=== PATIENT | male | born 2000 | race Two or more races ===

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

== ENCOUNTER 2019-01-18 12:39 | Emergency (ER) | payer BC ==
[2019-01-18] MEDS ORDERED: PREDNISONE 20 MG TABLET PO ONE (12:57)
[2019-01-18] MEDS ORDERED: IPRATROPIUM/ALBUTEROL 0.5-2.5 MG/3 ML AMPUL NEB ONE (12:57)
--- NOTE | 2019-01-18 12:59 | ER Document Report ---
ED Medical Screen (RME) - General Chief Complaint: Breathing Difficulty Stated Complaint: TROUBLE BREATHING/WHEEZING Time Seen by Provider: 01/18/19 12:55 Primary Care Provider: SHANAE PEARSNO MD [Primary Care Provider] - Follow up as needed Information source: Patient Notes: Patient presents with chest pain shortness of breath and wheezing that started yesterday. Patient reports productive green sputum. Patient denies any fever. Patient does have a history of asthma and is out of his medications. I have greeted and performed a rapid initial assessment of this patient. A comprehensive ED assessment and evaluation of the patient, analysis of test results and completion of the medical decision making process will be conducted by additional ED providers. TRAVEL OUTSIDE OF THE [place] IN LAST 30 DAYS: No - Related Data Allergies/Adverse Reactions: No Known Allergies Allergy (Verified 01/18/19 12:56) Past Medical History Pulmonary Medical History: Reports: Hx Asthma Renal/ Medical History: Denies: Hx Peritoneal Dialysis Psychiatric Medical History: Reports: Hx Attention Deficit Hyperactivity Disorder - Immunizations Immunizations up to date: Yes Physical Exam - Vital signs Vitals: Temp Pulse Resp BP Pulse Ox 98.5 F 102 H 26 H 140/57 H 95 01/18/19 12:53 01/18/19 12:53 01/18/19 12:53 01/18/19 12:53 01/18/19 12:53 - Respiratory Respiratory status: Tachypnea Chest status: Pain with cough Breath sounds: Productive cough, Wheezing Course - Vital Signs Vital signs: Temp Pulse Resp BP Pulse Ox 98.5 F 102 H 26 H 140/57 H 95 01/18/19 12:53 01/18/19 12:53 01/18/19 12:53 01/18/19 12:53 01/18/19 12:53 Doctor's Discharge - Discharge Referrals: SHANAE PEARSON MD [Primary Care Provider] - Follow up as needed
[2019-01-18] MEDS: ALBUTEROL SULFATE 0.083% NEB 2.5 MG/3 ML AMPUL NEB SCH ×2 (13:08→13:10)
--- NOTE | 2019-01-18 13:29 | ER Document Report ---
HPI - HPI Time Seen by Provider: 01/18/19 12:55 Pain Level: 1 Notes: Patient is a 18-year-old male with a history of asthma who presents complaining of having asthma exacerbation over the past 3 days. Patient states it started out as a dry cough. Patient states that he cannot afford an inhaler so he has not been using one. He is able to eat and drink without difficulty. He is urinating normally and having normal bowel movements. Denies drug allergies. Patient states that he has had flareups like this in the past. He is not been intubated or admitted for the asthma before. He does note some soreness/tightness primarily with cough. Denies any headache, fever, neck pain, URI, sore throat, chest pain, palpitations, syncope, abdominal pain, nausea/vomiting/diarrhea, urinary retention, dysuria, hematuria, or rash. - ROS Systems Reviewed and Negative: Yes All other systems reviewed and negative - REPRODUCTIVE Reproductive: DENIES: : Past Medical History - General Information source: Patient - Social History Smoking Status: Former Smoker Chew tobacco use (# tins/day): Yes Frequency of alcohol use: None Drug Abuse: None Family History: Reviewed & Not Pertinent Patient has suicidal ideation: No Patient has homicidal ideation: No Pulmonary Medical History: Reports: Hx Asthma Renal/ Medical History: Denies: Hx Peritoneal Dialysis Psychiatric Medical History: Reports: Hx Attention Deficit Hyperactivity Disorder - Immunizations Immunizations up to date: Yes Vertical Provider Document - CONSTITUTIONAL Agree With Documented VS: Yes Notes: PHYSICAL EXAMINATION: GENERAL: Well-appearing, well-nourished and in no acute distress. HEAD: Atraumatic, normocephalic. EYES: Pupils equal round and reactive to light, extraocular movements intact, sclera anicteric, conjunctiva are normal. ENT: Nares patent and without discharge. oropharynx clear without exudates. No tonsilar hypertrophy or erythema. Moist mucous membranes. NECK: Normal range of motion, supple without lymphadenopathy LUNGS: b/l wheezes, mild. no retractions. HEART: Regular rate and rhythm without murmurs, rubs, gallops. ABDOMEN: Soft, nontender, nondistended abdomen. No guarding, no rebound. Normal bowel sounds present. No CVA tenderness bilaterally. Musculoskeletal: FROM to passive/active. Strength 5+/5. Juan neg. No asymmetry to LE's. Extremities: No cyanosis, clubbing, or edema b/l. Peripheral pulses 2+. Capillary refill less than 3 seconds. NEUROLOGICAL: Normal speech, normal gait. PSYCH: Normal mood, normal affect. SKIN: Warm, Dry, normal turgor, no rashes or lesions noted. - INFECTION CONTROL TRAVEL OUTSIDE OF THE [place] IN LAST 30 DAYS: No Course - Re-evaluation Re-evalutation: 01/18/19 14:52 Patient is an afebrile, well-hydrated, 18-year-old male who presents with asthma exacerbation. Vitals are acceptable without significant tachycardia, tachypnea, or hypoxia. PE is otherwise unremarkable. Patient is nontoxic-appearing and is tolerating p.o. without doubly. Lungs are clear to auscultation bilaterally. Chest x-ray unremarkable. Patient did receive steroids as well as breathing treatments. No further work-up warranted at this time. Patient is feeling much better and is ready to go home. Denies drug allergies. Albuterol dispensed inhaler provided today. Low suspicion for any ACS, PE, pneumothorax, pericarditis, dissection, respiratory compromise, severe dehydration, sepsis, meningitis, or other systemic emergent condition at this time. Patient is aware that condition can change from initial presentation and he needs to monitor symptoms closely and seek medical attention for any acute changes. I will send him home with a prescription for steroid taper as well. Recommend conservative measures for symptoms. Recheck with your PCM in 2-3 days. Return to the ED with any worsening/concerning symptoms otherwise as reviewed in discharge. Patient is in agreement. - Vital Signs Vital signs: Temp Pulse Resp BP Pulse Ox 98.5 F 102 H 26 H 140/57 H 95 01/18/19 12:53 01/18/19 12:53 01/18/19 12:53 01/18/19 12:53 01/18/19 12:53 Discharge - Discharge Clinical Impression: Asthma exacerbation Qualifiers: Asthma severity: mild Asthma persistence: intermittent Qualified Code(s): J45.21 - Mild intermittent asthma with (acute) exacerbation Condition: Stable Disposition: HOME, SELF-CARE Instructions: Asthma ([facility]) Additional Instructions: Maintain adequate fluid intake tylenol/ibuprofen as needed alternating every 3 hours for fever/body ache over the counter cold medication as needed for symptoms Humidified air may help Wash your hands regularly Wear a mask when coughing F/u: with your PCM in 2-3 days for a recheck Return to the ED with any fever, altered mental status/behavior, chest pain, palpitations, syncope, headache, neck pain/stiffness, shortness of breath, chest pains, wheezing, drooling, trouble swallowing/breathing, abdominal pain, n/v/d, rash, or worsening/concerning symptoms otherwise. Prescriptions: Prednisone [Deltasone 10 mg Tablet] 10 mg PO DAILY #18 tablet Forms: Elevated Blood Pressure Referrals: SHANAE PEARSON MD [Primary Care Provider] - Follow up as needed
--- NOTE | 2019-01-18 14:32 | RADIOLOGY REPORT (SQ) ---
EXAM DESCRIPTION: CHEST 2 VIEWS COMPLETED DATE/TIME: 01/18/2019 2:21 pm REASON FOR STUDY: cp, cough COMPARISON: 10/20/2018. EXAM PARAMETERS: NUMBER OF VIEWS: two views TECHNIQUE: Digital Frontal and Lateral radiographic views of the chest acquired. RADIATION DOSE: NA LIMITATIONS: none FINDINGS: LUNGS AND PLEURA: No opacities, masses or pneumothorax. No pleural effusion. MEDIASTINUM AND HILAR STRUCTURES: No masses or contour abnormalities. HEART AND VASCULAR STRUCTURES: Heart normal size. No evidence for failure. BONES: No acute findings. HARDWARE: None in the chest. OTHER: No other significant finding. IMPRESSION: NO ACUTE RADIOGRAPHIC FINDING IN THE CHEST. TECHNICAL DOCUMENTATION: JOB ID: [id number] [employer]- All Rights Reserved Reading location - IP/workstation name: [email or web address]
[2019-01-18] MEDS ORDERED: ALBUTEROL SULFATE HFA (90 MCG/PUFF) 8 GM MDI (1 MDI/ER DISP) IH ONE (14:54)
[2019-01-18 15:11] VITALS: BP 121/74
== END 2019-01-18 15:12 | disposition home or self-care (01) ==
LOC: ER 12:39
DX: J45.21 Mild intermittent asthma with (acute) exacerbation (principal); R05 Cough; Z87.891 Personal history of nicotine dependence
CPT/HCPCS: 94640 ×2; 99285; 71046; J7512; J3490; J7620

== ENCOUNTER 2019-03-24 18:14 | Emergency (ER) | payer BC ==
[2019-03-24] MEDS ORDERED: ONDANSETRON 4 MG TAB.RAPDIS PO ONE (19:32)
[2019-03-24] MEDS ORDERED: IPRATROPIUM/ALBUTEROL 0.5-2.5 MG/3 ML AMPUL NEB ONE (19:32)
--- NOTE | 2019-03-24 19:33 | ER Document Report ---
ED Medical Screen (RME) - General Chief Complaint: Flu Symptoms Stated Complaint: FLU SYMPTOMS Time Seen by Provider: 03/24/19 19:27 Primary Care Provider: SHANAE PEARSON MD [Primary Care Provider] - Follow up as needed Notes: HPI: 18-year-old male with asthma history presenting to the emergency department complaining of flulike symptoms that began last week with chills, subjective fevers, dry cough. Patient had 3-4 episodes of vomiting today. Denies abdominal pain. Denies sore throat. Complains of generalized body ache. Has not used his inhaler today I have greeted and performed a rapid initial assessment of this patient. A comprehensive ED assessment and evaluation of the patient, analysis of test results and completion of the medical decision making process will be conducted by additional ED providers PHYSICAL EXAMINATION: GENERAL: Slightly ill-appearing, well-nourished and in mild acute distress. HEAD: Atraumatic, normocephalic. EYES: sclera anicteric, conjunctiva are normal. ENT: Moist mucous membranes. Moderate clear rhinitis NECK: Normal range of motion LUNGS: Normal work of breathing, expiratory wheezing in all lung ghosh HEART: 2+ radial pulses bilaterally, regular rate and rhythm ABD: limited by positioning for exam in triage. EXTREMITIES: no pitting or edema. No cyanosis. NEUROLOGICAL: No focal neurological deficits. Moves all extremities spontaneously and on command. PSYCH: Normal mood, normal affect. SKIN: Warm, Dry, normal turgor, no rashes or lesions noted. TRAVEL OUTSIDE OF THE [place] IN LAST 30 DAYS: No - Related Data Allergies/Adverse Reactions: No Known Allergies Allergy (Verified 03/24/19 19:26) Past Medical History Pulmonary Medical History: Reports: Hx Asthma Renal/ Medical History: Denies: Hx Peritoneal Dialysis Psychiatric Medical History: Reports: Hx Attention Deficit Hyperactivity Disorder - Immunizations Immunizations up to date: Yes Physical Exam - Vital signs Vitals: Temp Pulse Resp BP Pulse Ox 98.4 F 73 16 149/55 H 99 03/24/19 19:04 03/24/19 19:04 03/24/19 19:03/24/19 19:03/24/19 19:04 Course - Vital Signs Vital signs: Temp Pulse Resp BP Pulse Ox 98.4 F 73 16 149/55 H 99 03/24/19 19:04 03/24/19 19:04 03/24/19 19:04 03/24/19 19:04 03/24/19 19:04 Doctor's Discharge - Discharge Referrals: SHANAE PEARSON MD [Primary Care Provider] - Follow up as needed
--- NOTE | 2019-03-24 20:04 | RADIOLOGY REPORT (SQ) ---
EXAM DESCRIPTION: CHEST 2 VIEWS COMPLETED DATE/TIME: 03/24/2019 7:51 pm REASON FOR STUDY: cough fever COMPARISON: 01/18/2019 EXAM PARAMETERS: NUMBER OF VIEWS: two views TECHNIQUE: Digital Frontal and Lateral radiographic views of the chest acquired. RADIATION DOSE: NA LIMITATIONS: none FINDINGS: LUNGS AND PLEURA: No opacities, masses or pneumothorax. No pleural effusion. MEDIASTINUM AND HILAR STRUCTURES: No masses or contour abnormalities. HEART AND VASCULAR STRUCTURES: Heart normal size. No evidence for failure. BONES: No acute findings. HARDWARE: None in the chest. OTHER: No other significant finding. IMPRESSION: NO ACUTE RADIOGRAPHIC FINDING IN THE CHEST. TECHNICAL DOCUMENTATION: JOB ID: [id number] [employer]- All Rights Reserved Reading location - IP/workstation name: [id number]
[2019-03-24 21:13] LABS: A TYPE INFLUENZA AG NEGATIVE (NEGATIVE); B INFLUENZA AG NEGATIVE (NEGATIVE)
[2019-03-24] MEDS ORDERED: PREDNISONE 20 MG TABLET PO ONE (23:07)
[2019-03-24] MEDS ORDERED: ONDANSETRON ODT 4 MG TAB (6 TAB/ER DISP) PO PRN (23:07)
[2019-03-24] MEDS ORDERED: ALBUTEROL SULFATE HFA (90 MCG/PUFF) 8 GM MDI (1 MDI/ER DISP) IH ONE (23:07)
--- NOTE | 2019-03-24 23:14 | ER Document Report ---
ED General - General Chief Complaint: Flu Symptoms Stated Complaint: FLU SYMPTOMS Time Seen by Provider: 03/24/19 19:27 Notes: Patient is a 18-year-old male who comes emergency department for chief complaint of body aches, chills, cough, wheezing, for the past several days. However he also developed vomiting and vomited 4 times over the past 1.5 days. He denies diarrhea. He states he was given treatment for nausea and a treatment for maurice thing in triage and he does feel much better. He states he has been exposed to someone with the same symptoms. He has not had the influenza vaccine. He does have a history of asthma. He denies smoking. He takes no daily medications except as needed albuterol inhaler. TRAVEL OUTSIDE OF THE [place] IN LAST 30 DAYS: No - Related Data Allergies/Adverse Reactions: No Known Allergies Allergy (Verified 03/24/19 19:26) Past Medical History - General Information source: Patient - Social History Smoking Status: Current Some Day Smoker Chew tobacco use (# tins/day): Yes - occassional Frequency of alcohol use: Occasional Drug Abuse: None Lives with: Family Family History: Reviewed & Not Pertinent Patient has suicidal ideation: No Patient has homicidal ideation: No Pulmonary Medical History: Reports: Hx Asthma Renal/ Medical History: Denies: Hx Peritoneal Dialysis Psychiatric Medical History: Reports: Hx Attention Deficit Hyperactivity Disorder - Immunizations Immunizations up to date: Yes Review of Systems - Review of Systems Constitutional: See HPI EENT: See HPI Cardiovascular: No symptoms reported Respiratory: See HPI Gastrointestinal: See HPI Genitourinary: No symptoms reported Male Genitourinary: No symptoms reported Musculoskeletal: No symptoms reported Skin: No symptoms reported Hematologic/Lymphatic: No symptoms reported Neurological/Psychological: No symptoms reported Physical Exam - Vital signs Vitals: Temp Pulse Resp BP Pulse Ox 98.4 F 73 16 149/55 H 99 03/24/19 19:04 03/24/19 19:04 03/24/19 19:03/24/19 19:03/24/19 19:04 - Notes Notes: GENERAL: Alert, interacts well. No acute distress. HEAD: Normocephalic, atraumatic. EYES: Pupils equal, round, and reactive to light. Extraocular movements intact. ENT: Oral mucosa moist, tongue midline. Oropharynx unremarkable. Airway patent. Mild nasal congestion, no nasal septal hematoma, TM's intact. NECK: Full range of motion. Supple. Trachea midline. LUNGS: Clear to auscultation bilaterally, no wheezes, rales, or rhonchi. No respiratory distress. Occasional congested cough. HEART: Regular rate and rhythm. No murmur ABDOMEN: Soft, non-tender. Non-distended. EXTREMITIES: Moves all 4 extremities spontaneously. No edema, normal radial and dorsalis pedis pulses bilaterally. No cyanosis. BACK: no cervical, thoracic, lumbar midline tenderness. No saddle anesthesia, normal distal neurovascular exam. Moves all extremities in full range of motion. NEUROLOGICAL: Alert and oriented x3. Normal speech. Cranial nerves II through XII grossly intact. PSYCH: Normal affect, normal mood. SKIN: Warm, dry, normal turgor. No rashes or lesions noted. Course - Re-evaluation Re-evalutation: Patient has occasional episodes of congested cough but he is not wheezing on my exam, he has no hypoxia or distress. Overall symptoms do suggest a viral syndrome. Chest x-ray is negative for pneumonia, influenza is negative. Patient states he feels much better after the treatment from triage including nausea medication and DuoNeb. Patient given steroids, placed on nausea medication and albuterol, discussed treatments, follow-up, return precautions in detail. Patient states appreciation and agreement. Stable at time of discharge. - Vital Signs Vital signs: Temp Pulse Resp BP Pulse Ox 97.6 F 74 20 142/45 H 98 03/24/19 23:25 03/24/19 23:25 03/24/19 23:25 03/24/19 23:25 03/24/19 23:25 Discharge - Discharge Clinical Impression: Wheezing, Cough Upper respiratory infection Qualifiers: URI type: unspecified URI Qualified Code(s): J06.9 - Acute upper respiratory infection, unspecified Vomiting Qualifiers: Vomiting type: unspecified Vomiting Intractability: non-intractable Nausea presence: unspecified Qualified Code(s): R11.10 - Vomiting, unspecified Condition: Stable Disposition: HOME, SELF-CARE Additional Instructions: Your influenza test is negative. Your chest x-ray is normal. Your evaluation is consistent with a viral illness causing an exacerbation of your asthma. Take prednisone as prescribed, take Phenergan if needed for nausea, use albuterol if needed with the spacer, drink plenty of fluids and rest. Take Tylenol or ibuprofen for chills/body aches. Symptoms should gradually resolve with time. Follow-up with primary care for additional management. Return if you worsen including uncontrolled vomiting, difficulty breathing, spiking fevers, or any other concerning or worsening symptoms. Prescriptions: Prednisone [Deltasone 20 mg Tablet] 3 tab PO DAILY 5 Days #15 tablet Promethazine HCl [Phenergan 25 mg Tablet] 25 mg PO Q6H PRN #15 tablet PRN Reason: Albuterol Sulfate [Proair HFA Inhalation Aerosol 8.5 gm MDI] 2 puff IH Q4H PRN #1 mdi PRN Reason: Forms: Return to Work
[2019-03-24 23:25] VITALS: BP 142/45
== END 2019-03-24 23:25 | disposition home or self-care (01) ==
LOC: ER 18:14
DX: J06.9 Acute upper respiratory infection, unspecified (principal); R09.81 Nasal congestion; R05 Cough; R68.83 Chills (without fever); J45.909 Unspecified asthma, uncomplicated; F17.200 Nicotine dependence, unspecified, uncomplicated
CPT/HCPCS: 94640; 99283; 87804; 71046; J7512; S0119; J3490; J7620

== ENCOUNTER 2020-02-25 16:34 | Emergency (ER) | payer BC ==
[2020-02-25] MEDS ORDERED: IBUPROFEN 600 MG TABLET PO ONE (19:49)
--- NOTE | 2020-02-25 19:51 | ER Document Report ---
ED Extremity Problem, Lower - General Chief Complaint: Knee Pain Stated Complaint: KNEE PAIN Time Seen by Provider: 02/25/20 19:42 Primary Care Provider: SHANAE PEARSON MD [Primary Care Provider] - Follow up as needed Mode of Arrival: Ambulatory Information source: Patient TRAVEL OUTSIDE OF THE [place] IN LAST 30 DAYS: No - HPI Patient complains to provider of: Injury, Pain Location: Knee Notes: Patient with complaints of left knee pain. 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 He was walking through mud while carrying a 6 x 6 with his boss. He states that his left leg sunk down into mild and then he lost his balance falling backwards and a 6 x 6 fell out of his hand and hit his left knee. He states he also twisted his knee when this occurred. He denies hitting his head or loss of consciousness. He is had chronic constant pain in the left knee which is moderate and worse with ambulation since this occurred. The pain is better with rest. He denies fever or redness. He denies numbness, tingling, weakness. No swelling. No chest pain or shortness of breath. No abdominal pain. No nausea, vomiting, diarrhea. He denies any other injuries or complaints at this time. - Related Data Allergies/Adverse Reactions: No Known Allergies Allergy (Verified 03/24/19 19:26) Home Medications: inhaler as needed Past Medical History - Social History Smoking Status: Never Smoker Chew tobacco use (# tins/day): No Frequency of alcohol use: Occasional Drug Abuse: None Family History: Reviewed & Not Pertinent Pulmonary Medical History: Reports: Hx Asthma Renal/ Medical History: Denies: Hx Peritoneal Dialysis Psychiatric Medical History: Reports: Hx Attention Deficit Hyperactivity Disorder - Immunizations Immunizations up to date: Yes Review of Systems - Review of Systems -: Yes All other systems reviewed and negative Physical Exam - Vital signs Vitals: Temp Pulse Resp BP Pulse Ox 98.1 F 68 18 117/55 L 98 02/25/20 17:29 02/25/20 17:29 02/25/20 17:29 02/25/20 17:29 02/25/20 17:29 - Notes Notes: GENERAL: alert, cooperative, nontoxic, no distress. HEAD: normocephalic, atraumatic EYES: conjunctiva pink without discharge, no external redness or swelling. EARS: no external swelling, no external redness NOSE: atraumatic, no external swelling MOUTH/THROAT: mucous membranes moist and pink NECK: soft, supple, full range of motion, no meningismus. CHEST: no distress, lungs clear and equal throughout. No wheezing, rales, rhonchi. CARDIAC: regular rate and rhythm, no murmur EXTREMITIES: full range of motion of all extremities. No redness, no swelling. Mild tenderness palpation of medial aspect of the left knee. No obvious ligament instability. Normal anterior and posterior drawer. Patient is able to extend the knee without difficulty. Normal sensation distally. Compartments are soft. NEURO: alert and oriented 3, no focal deficits, full range of motion of all extremities. PYSCH: appropriate mood, affect. Patient is cooperative. SKIN: pink, warm, dry, no rash. Course - Re-evaluation Re-evalutation: 02/25/20 21:02 Patient resting comfortably at this time. I got her results with the patient. Questions been answered. Will discharge home. Patient with complaints of left knee pain. He states he was walking through some mud when he sunk down into the mud twisted his knee fell backwards and dropped a 6 x 6 on his left knee. This happened yesterday at work. On exam there is no swelling, redness or signs of infection. Neurovascular is intact. No obvious ligament instability. No deformity. Normal pulse and sensation distally. No other signs of trauma or injury. X-rays negative for acute findings. Patient will have an Filiberto wrap applied to the left knee for comfort and will be discharged home with prescription for NSAIDs. He will be strict instructed on rest, ice, elevation. Follow-up with primary care or Ortho if not better in 1 week, sooner for worsening pain, fever, numbness, tingling, weakness, any further concerns. 02/25/20 21:03 The patient's emergency department workup and current diagnosis were explained to the patient and or family. Follow-up instructions were provided. Medications if prescribed were discussed. Instructions for when to return to the emergency department including specific worrisome symptoms were discussed with the patient and/or family. - Vital Signs Vital signs: Temp Pulse Resp BP Pulse Ox 98.1 F 68 18 117/55 L 98 02/25/20 17:29 02/25/20 17:29 02/25/20 17:29 02/25/20 17:29 02/25/20 17:29 - Laboratory Results Critical Laboratory Results Reviewed: No Critical Results - Radiology Results Critical Radiology Results Reviewed: No Critical Results Procedures - Immobilization Left Knee Pre-Proc Neuro Vasc Exam: Normal Immobilizer type: Filiberto wrap Performed by: PCT Post-Proc Neuro Vasc Exam: Normal Alignment checked and good: Yes Discharge - Discharge Clinical Impression: Sprain of left knee Qualifiers: Encounter type: initial encounter Involved ligament of knee: unspecified ligament Qualified Code(s): S83.92XA - Sprain of unspecified site of left knee, initial encounter Condition: Stable Disposition: HOME, SELF-CARE Instructions: Ice & Elevation ([facility]), Sprained Knee ([facility]) Additional Instructions: Take medications as prescribed. Wear Filiberto wrap as needed for comfort. Rest, ice, elevate. Follow-up with your doctor or orthopedics if not better in 1 week, sooner for worsening pain, fever, redness, numbness, tingling, weakness, any further concerns. Prescriptions: Diclofenac Sodium [Voltaren 50 Mg Tablet.] 50 mg PO BID #20 tablet.dr Referrals: SHANAE PEARSON MD [Primary Care Provider] - Follow up as needed
--- NOTE | 2020-02-25 20:49 | RADIOLOGY REPORT (SQ) ---
EXAM DESCRIPTION: KNEE LEFT 4 VIEW [facility]Lex: XR KNEE 4 OR MORE VIEWS Views: 4 CLINICAL HISTORY: 19 years Male; twisted knee, board fell on it; COMPARISON: None. FINDINGS: Negative for acute fracture, dislocation, or radiopaque foreign body. No joint effusion IMPRESSION: 1. No acute findings.
[2020-02-25 21:21] VITALS: BP 116/60
== END 2020-02-25 21:42 | disposition home or self-care (01) ==
LOC: ER 16:34
DX: S83.92XA Sprain of unspecified site of left knee, initial encounter (principal); W01.198A Fall on same level from slipping, tripping and stumbling with subsequent striking against other object, initial encounter; Y93.H3 Activity, building and construction; Y99.0 Civilian activity done for income or pay; J45.909 Unspecified asthma, uncomplicated
CPT/HCPCS: 99283